=== PATIENT | female | born 1985 | race African-American/Black ===

== ENCOUNTER 2019-12-21 21:11 | Inpatient (IN) | payer BC, OTHER ==
[~2019-12-21] VITALS: Ht 166.4 cm; Wt 68.9 kg
[2019-12-21 22:48] LABS: PLATELET COUNT 122 x10^3mcL (130-400); RED CELL DISTRIBUTION WIDTH 16.1 % (11.5-14.5)
[2019-12-21 22:54] LABS: CARBON DIOXIDE 21.6 mmol/L (21-32); CREATININE SERUM 1.5 mg/dL (0.6-1.0); POTASSIUM SERUM 3.6 mmol/L (3.5-5.1)
[2019-12-21 22:59] LABS: ALBUMIN 2.5 g/dL (3.4-5.0); BILIRUBIN TOTAL 0.6 mg/dL (0.20-1.00); TOTAL PROTEIN, SERUM 6.4 g/dL (6.4-8.2)
[2019-12-21 23:37] LABS: BAND NEUTROPHIL 0 % (0-10); BASOPHIL 0 % (0-2); MONOCYTE 12 % (0-7); SEGMENTED NEUTROPHILS 21 % (37-75); rbc morphology (normal/abnorm) ABNORMAL (NORMAL)
[2019-12-21] MEDS ORDERED: ROXICODONE5 MG PO (23:37)
[2019-12-21] MEDS ORDERED: ACETAMINOPHEN500 M5 PO (23:38)
[2019-12-22] VITALS (13 sets, daily range): BP systolic 76–133; BP diastolic 35–95
[2019-12-22 00:28] LABS: MAGNESIUM 1.8 mg/dL (1.8-2.4); PHOSPHOROUS 1.8 mg/dL (2.5-4.9)
[2019-12-22 06:14] LABS: CALCIUM 7.3 mg/dL (8.5-10.1); CARBON DIOXIDE 19.9 mmol/L (21-32); CREATININE SERUM 1.3 mg/dL (0.6-1.0); MAGNESIUM 1.6 mg/dL (1.8-2.4); PHOSPHOROUS 2.2 mg/dL (2.5-4.9); POTASSIUM SERUM 3.8 mmol/L (3.5-5.1)
[2019-12-22 07:30] LABS: BILIRUBIN DIRECT 0.31 mg/dL (0.0-0.2); BILIRUBIN TOTAL 0.67 mg/dL (0.20-1.00)
[2019-12-22 07:39] LABS: ALBUMIN 1.9 g/dL (3.4-5.0); TOTAL PROTEIN, SERUM 5.2 g/dL (6.4-8.2)
[2019-12-22 08:41] LABS: PLATELET COUNT 104 x10^3mcL (130-400); RED CELL DISTRIBUTION WIDTH 15.9 % (11.5-14.5)
[2019-12-22 11:57] LABS: BAND NEUTROPHIL 0 % (0-10); METAMYELOCTE 1 % (0-2); MONOCYTE 10 % (0-7); SEGMENTED NEUTROPHILS 15 % (37-75); rbc morphology (normal/abnorm) ABNORMAL (NORMAL)
[2019-12-22 11:58] LABS: PLATELET MORPHOLOGY PLATELETS DECREASED; burr cell (echinocyte) 1+; ovalocyte/elliptocyte 1+
[2019-12-22 15:37] LABS: microscopic required? YES; urine erythrocyte TRACE (NEGATIVE)
[2019-12-23] VITALS: BP 119/84
[2019-12-23 04:00] VITALS: BP 118/82
[2019-12-23 05:33] LABS: CALCIUM 7.7 mg/dL (8.5-10.1); CARBON DIOXIDE 19.4 mmol/L (21-32); CHLORIDE SERUM 111 mmol/L (98-107); CREATININE SERUM 1.1 mg/dL (0.6-1.0); GFR1 > 60 mL/min; GLUCOSE SERUM 179 mg/dL (74-106); PHOSPHOROUS 2.7 mg/dL (2.5-4.9); POTASSIUM SERUM 3.2 mmol/L (3.5-5.1); SODIUM SERUM 143 mmol/L (136-145)
[2019-12-23 05:34] LABS: PLATELET COUNT 113 x10^3mcL (130-400); RED CELL DISTRIBUTION WIDTH 16.5 % (11.5-14.5)
[2019-12-23 06:04] LABS: SEGMENTED NEUTROPHILS 1 % (37-75); burr cell (echinocyte) 2+; rbc morphology (normal/abnorm) ABNORMAL (NORMAL)
[2019-12-23 06:05] LABS: PLATELET MORPHOLOGY PLATELETS DECREASED; tear drop cell (dacryocyte) 1+
[2019-12-23 09:00] VITALS: BP 117/87
[2019-12-23 09:06] VITALS: Ht 166.4 cm; Wt 68.9 kg
[2019-12-23 12:12] VITALS: BP 123/91
[2019-12-23 16:00] VITALS: BP 123/93
[2019-12-23 20:00] VITALS: BP 118/86
[2019-12-24] VITALS: BP 103/66
[2019-12-24 04:00] VITALS: BP 110/74
[2019-12-24 07:32] LABS: CALCIUM 7.7 mg/dL (8.5-10.1); CARBON DIOXIDE 21.2 mmol/L (21-32); CHLORIDE SERUM 117 mmol/L (98-107); CREATININE SERUM 0.9 mg/dL (0.6-1.0); GFR1 > 60 mL/min; GLUCOSE SERUM 106 mg/dL (74-106); MAGNESIUM 2.1 mg/dL (1.8-2.4); POTASSIUM SERUM 3.4 mmol/L (3.5-5.1); SODIUM SERUM 148 mmol/L (136-145)
[2019-12-24 07:34] LABS: PHOSPHOROUS 0.9 mg/dL (2.5-4.9)
[2019-12-24 08:58] LABS: PLATELET COUNT 72 x10^3mcL (130-400); RED CELL DISTRIBUTION WIDTH 16.6 % (11.5-14.5)
[2019-12-24 09:00] VITALS: BP 116/86
[2019-12-24 12:10] VITALS: BP 111/78
[2019-12-24 12:43] LABS: BAND NEUTROPHIL 2 % (0-10); SEGMENTED NEUTROPHILS 13 % (37-75)
[2019-12-24 12:44] LABS: ATYPICAL LYMPH 1 %; MONOCYTE 12 % (0-7); rbc morphology (normal/abnorm) ABNORMAL (NORMAL)
[2019-12-24 12:45] LABS: PLATELET MORPHOLOGY PLATELETS DECREASED; burr cell (echinocyte) 1+; ovalocyte/elliptocyte 1+; tear drop cell (dacryocyte) 1+
[2019-12-24 16:00] VITALS: BP 119/84
[2019-12-25 06:22] LABS: PLATELET COUNT 60 x10^3mcL (130-400); RED CELL DISTRIBUTION WIDTH 16.6 % (11.5-14.5)
[2019-12-25 06:37] LABS: CALCIUM 7.3 mg/dL (8.5-10.1); CARBON DIOXIDE 23.2 mmol/L (21-32); CHLORIDE SERUM 115 mmol/L (98-107); GFR1 > 60 mL/min; GLUCOSE SERUM 109 mg/dL (74-106); PHOSPHOROUS 1.6 mg/dL (2.5-4.9); SODIUM SERUM 146 mmol/L (136-145)
[2019-12-25 06:47] LABS: POTASSIUM SERUM 2.9 mmol/L (3.5-5.1)
[2019-12-25 08:00] VITALS: BP 109/64
[2019-12-25 08:25] LABS: BAND NEUTROPHIL 2 % (0-10); MONOCYTE 7 % (0-7); SEGMENTED NEUTROPHILS 60 % (37-75); rbc morphology (normal/abnorm) ABNORMAL (NORMAL)
[2019-12-25 12:00] VITALS: BP 120/79
[2019-12-25 16:30] VITALS: BP 107/70
[2019-12-25 21:22] VITALS: BP 109/71
[2019-12-26 05:52] VITALS: BP 117/80
[2019-12-26 07:38] LABS: CALCIUM 7.5 mg/dL (8.5-10.1); CARBON DIOXIDE 22.4 mmol/L (21-32); CHLORIDE SERUM 110 mmol/L (98-107); GFR1 > 60 mL/min; GLUCOSE SERUM 113 mg/dL (74-106); MAGNESIUM 1.9 mg/dL (1.8-2.4); PHOSPHOROUS 2.7 mg/dL (2.5-4.9); SODIUM SERUM 142 mmol/L (136-145)
[2019-12-26 08:24] VITALS: BP 121/82
[2019-12-26 09:43] LABS: PLATELET COUNT 104 x10^3mcL (130-400); RED CELL DISTRIBUTION WIDTH 17.6 % (11.5-14.5)
[2019-12-26 11:26] LABS: BAND NEUTROPHIL 3 % (0-10); MONOCYTE 6 % (0-7); SEGMENTED NEUTROPHILS 75 % (37-75)
[2019-12-26 11:55] LABS: rbc morphology (normal/abnorm) NORMAL (NORMAL)
[2019-12-26 12:10] VITALS: BP 121/80
[2019-12-26 16:22] VITALS: BP 138/83
[2019-12-26 21:08] VITALS: BP 122/87; BP 148/88
[2019-12-27 05:51] VITALS: BP 130/85
[2019-12-27 08:25] VITALS: BP 134/75
[2019-12-27] MEDS ORDERED: CIPRO500 MG PO (12:29)
[2019-12-27 12:30] VITALS: BP 138/73
[2019-12-27 15:12] VITALS: BP 138/73
[2019-12-27] MEDS ORDERED: ASPERCREME1 EACH TOP (15:12)
[2019-12-27] MEDS ORDERED: ROXICODONE5 MG PO (16:23)
[2019-12-27] MEDS ORDERED: PERCOCET1 TAB PO (22:23)
== END 2019-12-27 18:50 | disposition home or self-care (01) | DRG 871 ==
LOC: ED 21:11 → IC 23:19 → DU 23:19 → IC 12-22 02:23 → DU 12-25 18:31
PROVIDERS: Emergency Medicine; ADMIT Internal Medicine; ATTEND Internal Medicine
PROC: 02HV33Z Insertion of Infusion Device into Superior Vena Cava, Percutaneous Approach (ICD-10-PCS; principal; 2019-12-21)
PROC: B548ZZA Ultrasonography of Superior Vena Cava, Guidance (ICD-10-PCS; 2019-12-21)
DX: A41.9 Sepsis, unspecified organism (principal); N17.0 Acute kidney failure with tubular necrosis; E43 Unspecified severe protein-calorie malnutrition; R65.21 Severe sepsis with septic shock; E87.2 Acidosis; G90.9 Disorder of the autonomic nervous system, unspecified; D70.9 Neutropenia, unspecified; D64.9 Anemia, unspecified; D70.2 Other drug-induced agranulocytosis; T45.1X5A Adverse effect of antineoplastic and immunosuppressive drugs, initial encounter; E87.6 Hypokalemia; E83.39 Other disorders of phosphorus metabolism; Z85.028 Personal history of other malignant neoplasm of stomach; Z90.49 Acquired absence of other specified parts of digestive tract; Y92.89 Other specified places as the place of occurrence of the external cause; Z83.3 Family history of diabetes mellitus; Z68.25 Body mass index [BMI] 25.0-25.9, adult
CPT/HCPCS: 82962; 83880; 85378; 87046; 87046-59; C9113; G0378; J0692; J0696; J0744; J1442; J1720; J1953; J1956; J2060; J2270; J2370; J2405; J3370; J3480; J3490; J7030; J7060; Q9967; U0003